=== PATIENT | female | born 1990 | race Caucasian/White ===

== ENCOUNTER 2023-08-11 20:25 | Emergency (ER) | payer MEDICAID ==
--- NOTE | 2023-08-11 20:47 | ED Physician Documentation ---
History of Present Illness - Stated complaint Stated Complaint: CHEST PX - Chief complaint Chief Complaint: Cardiac - Additonal information Additional information: Patient 33-year-old female with past medical significant for preeclampsia, ob esity presenting to the emergency department with left-sided chest pain. Reports intermittent episodes left-sided chest pain that began this morning. No associated shortness of breath or diaphoresis. Has not noted exacerbating or alleviating factors. Reports has been feeling the stabbing left-sided chest pain intermittently at least once or twice an hour since this morning. He denies any recent travel, lower extremity swelling, calf tenderness, history of blood clots, estrogen containing medications, smoking. Does report a history of family coronary artery disease stating that her father had a heart attack at approximately age 60. Review of Systems Constitutional: denies: Fever Eyes: denies: Loss of vision Ears: denies: Loss of hearing Nose: denies: Rhinorrhea / runny nose Throat: denies: Dental pain / toothache Cardiac: reports: Chest pain / pressure Respiratory: denies: Dyspnea : denies: Dysuria Skin: denies: Rash PD PAST MEDICAL HISTORY - Past Medical History Past Medical History: No Cardiovascular: None - Past Surgical History Past Surgical History: No - Present Medications Home Medications: Ambulatory Orders Medication Instructions Recorded Confirmed Ketorolac [Toradol] 10 mg PO Q6H #20 tablet 08/12/23 - Allergies Allergies/Adverse Reactions: Allergies Allergy/AdvReac Type Severity Reaction Status Date / Time Penicillins Allergy Itching Verified 08/11/23 20:28 - Social History Does the pt smoke?: No Smoking Status: Never smoker Does the pt drink ETOH?: Yes Does the pt have substance abuse?: No - Immunizations Immunizations are current?: Yes - POLST Patient has POLST: No PD ED PE NORMAL - Vitals Vital signs reviewed: Yes (WNL) - General General: Alert and oriented X 3, No acute distress, Well developed/nourished - HEENT HEENT: Atraumatic, PERRL, EOMI, Ears normal, Moist mucous membranes, Pharynx benign - Neck Neck: Supple, no meningeal sign, No bony TTP, No adenopathy, Thyroid normal - Cardiac Cardiac: RRR, No murmur, No gallop - Respiratory Respiratory: No respiratory distress, Clear bilaterally - Abdomen Abdomen: Normal bowel sounds, Non tender, No organomegaly - Female Female : Deferred - Rectal Rectal: Deferred - Back Back: No CVA TTP - Derm Derm: Normal color - Extremities Extremities: No deformity - Neuro Neuro: Alert and oriented X 3, 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 Relevant findings are: Sinus rhythm with rate 95 bpm. Normal axis. Normal RI, QRS, QTc intervals. No ST segment elevations or T wave inversions. - Labs Labs: Laboratory Tests 08/11/23 08/11/23 08/11/23 21:05 21:05 21:05 WBC 13.7 H RBC 4.76 Hgb 11.5 L Hct 37.7 MCV 79.2 L MCH 24.2 L MCHC 30.5 L RDW 14.0 Plt Count 367 MPV 9.6 Neut # (Auto) 8.3 H Lymph # (Auto) 4.2 H Harvey # (Auto) 0.9 Eos # (Auto) 0.2 Baso # (Auto) 0.0 Absolute Nucleated RBC 0.00 Nucleated RBC % 0.0 D-Dimer 255.5 H Sodium 137 Potassium 4.0 Chloride 103 Carbon Dioxide 25 Anion Gap 9.0 BUN 14 Creatinine 0.7 Estimated GFR (MDRD) 96 Glucose 110 H Calcium 9.7 Total Bilirubin 0.2 AST 11 ALT 11 Alkaline Phosphatase 69 Troponin I High Sens Total Protein 8.4 Albumin 4.2 Globulin 4.2 Albumin/Globulin Ratio 1.0 Lipase 44 Urine HCG, Qual 08/11/23 08/11/23 08/11/23 21:05 21:30 22:52 WBC RBC Hgb Hct MCV MCH MCHC RDW Plt Count MPV Neut # (Auto) Lymph # (Auto) Harvey # (Auto) Eos # (Auto) Baso # (Auto) Absolute Nucleated RBC Nucleated RBC % D-Dimer Sodium Potassium Chloride Carbon Dioxide Anion Gap BUN Creatinine Estimated GFR (MDRD) Glucose Calcium Total Bilirubin AST ALT Alkaline Phosphatase Troponin I High Sens < 2.3 L 2.4 Total Protein Albumin Globulin Albumin/Globulin Ratio Lipase Urine HCG, Qual NEGATIVE PD Medical Decision Making - ED course Complexity details: reviewed results, considered differential, d/w patient ED course: Patient 33-year-old female presenting with left-sided chest pain. Happening intermittently x 1 day. Afebrile, he medically stable on arrival to the emergency department. EKG nonacute. Serial high-sensitivity troponins are negative. Patient did have minimal elevation in D-dimer. CT PE protocol negative for intrathoracic pathology.Monitored in the emergency department for several hours on telemetry with no new or worsening symptoms. Does not appear to be a dangerous or life-threatening cause for her symptoms at this time. She is low risk for major cardiac event per heart scoring. Will discharge for follow-up with primary care. Will discharge with short course nonsteroidal anti-inflammatory medication. Clear return precautions given. Departure - Departure Disposition: 01 Home, Self Care Clinical Impression: Chest pain Qualifiers: Chest pain type: unspecified Qualified Code(s): R07.9 - Chest pain, unspecified Instructions: ED Chest Pain Atypical Unkn Cause Prescriptions: Ketorolac [Toradol] 10 mg PO Q6H #20 tablet Comments: Thank you for allowing us to care for you today at [facility]. Today in the emergency department you were evaluated for any possible dangerous or life-threatening medical emergency. All the testing performed in the emergency department today including your blood work, EKG, chest x-ray and chest CT were all very reassuring. There is no dangerous or life-threatening cause for your symptoms identified however it is importantly follow-up with your primary care doctor concerning your ER evaluation. As we discussed I do believe that there is likely a musculoskeletal component to your symptoms. Towards that end I have written your prescription for strong nonsteroidal anti-inflammatory medications. These were sent to [facility] in [place]. Please use this as directed. Please take these medicines with food. If it anytime you develop any new or worsening symptoms it is important that you return to the emergency department for new evaluation. Forms: PCP List
[2023-08-11 21:12] LABS: BASOPHILS % (AUTO) 0.3 %; EOSINOPHILS # (AUTO) 0.2 10^3/uL (0.0-0.7); EOSINOPHILS % (AUTO) 1.5 %; HCT - HEMATOCRIT 37.7 % (37.0-47.0); HGB - HEMOGLOBIN 11.5 g/dL (12.0-16.0); LYMPHOCYTES # (AUTO) 4.2 10^3/uL (1.5-3.5); LYMPHOCYTES % (AUTO) 30.5 %; MEAN CORPUSCULAR HEMOGLOBIN 24.2 pg (27.0-31.0); MEAN CORPUSCULAR HGB CONC 30.5 g/dL (32.0-36.0); MEAN CORPUSCULAR VOLUME 79.2 fL (81.0-99.0); MEAN PLATELET VOLUME 9.6 fL (7.9-10.8); MONOCYTES # (AUTO) 0.9 10^3/uL (0.0-1.0); MONOCYTES % (AUTO) 6.7 %; NEUTROPHILS # (AUTO) 8.3 10^3/uL (1.5-6.6); NEUTROPHILS % (AUTO) 60.7 %; PLT - PLATELET COUNT 367 10^3/uL (130-450); RED BLOOD COUNT 4.76 10^6/uL (4.20-5.40); WHITE BLOOD COUNT 13.7 x10^3/uL (4.8-10.8)
[2023-08-11 21:26] LABS: ALBUMIN 4.2 g/dL (3.2-5.5); BILIRUBIN,TOTAL 0.2 mg/dL (0.2-1.0); CALCIUM 9.7 mg/dL (8.5-10.3); CREATININE 0.7 mg/dL (0.6-1.3); TOTAL PROTEIN 8.4 g/dL (6.4-8.9)
[2023-08-11 21:41] LABS: HCG UR QUAL NEGATIVE
--- NOTE | 2023-08-11 21:56 | XRAY Report ---
PROCEDURE: Chest 1V INDICATIONS: chest pain TECHNIQUE: One view of the chest was acquired. COMPARISON: None. FINDINGS: Surgical changes and devices: None. Lungs and pleura: Low lung volumes. No consolidation or pleural effusion Mediastinum: Normal heart size Bones and chest wall: Unremarkable IMPRESSION: Single view radiograph without acute abnormality. Reviewed by: Mark Barrera MD on 08/11/2023 9:55 PM PDT Approved by: Mark Barrera MD on 08/11/2023 9:55 PM PDT Station ID: [id number]
[2023-08-11] MEDS ORDERED: iohexoL-300 100 ML VIAL ONE (22:26)
[2023-08-11] MEDS: iohexoL-300 100 ML VIAL IVP ONE (23:13)
--- NOTE | 2023-08-11 23:33 | CT Report ---
PROCEDURE: Angio Chest INDICATIONS: CP, rule out PE CONTRAST: 100 ML OMNI 300 TECHNIQUE: After the administration of intravenous contrast, 2 mm axial images were acquired from the pulmonary apices to the posterior costophrenic angles during the arterial phase. In addition, 1 mm lung kernel and 5 mm soft tissue kernel reconstructions were performed. 3-dimensional coronal oblique maximum int ensity projection (MIP) reformats, 8 mm axial MIP, and 5 mm coronal and sagittal MPR reformats were t hen performed through the thorax. For radiation dose reduction, the following was used: automated exp osure control, adjustment of mA and/or kV according to patient size. COMPARISON: Same-day radiograph FINDINGS: Image quality: Mild motion artifact. Suboptimal pulmonary arterial opacification Lungs and pleura:No dense consolidation or pleural effusion. Lung volumes are low. Mediastinum, heart, and esophagus: No central pulmonary embolism. The distal arteries are not well ev aluated due to suboptimal opacification and mild motion artifact. Mildly patulous distal esophagus. B orderline heart size. No pathologic lymph nodes by size criteria Chest wall and thyroid: Unremarkable Upper abdomen: No gross abnormality on these arterial phase imaging Bones: Unremarkable. Mild degenerative changes. IMPRESSION: No central pulmonary embolism. The distal arteries are not well evaluated on this study. No significa nt pulmonary airspace disease or pleural effusions. Reviewed by: Mark Barrera MD on 08/11/2023 11:31 PM PDT Approved by: Mark Barrera MD on 08/11/2023 11:31 PM PDT Station ID: [id number]
[2023-08-12 00:41] VITALS: BP 148/73; O2SAT 99
== END 2023-08-12 00:37 | disposition home or self-care (01) ==
LOC: ED 20:25
DX: R07.9 Chest pain, unspecified (principal); Z82.49 Family history of ischemic heart disease and other diseases of the circulatory system
CPT/HCPCS: 36415; 71045; 71275; 80053; 81025; 83690; 84484; 85025; 85379; 93005; 99283; 99284; Q9967

== ENCOUNTER 2023-09-28 08:00 | Outpatient (CLI) | payer MEDICAID | END 2023-09-28 23:59 | disposition home or self-care (01) | LOC: LAB.N 08:00 | PROVIDERS: ATTEND Physician Assistant Medical | DX: J02.9 Acute pharyngitis, unspecified (principal) | CPT/HCPCS: 87070 ==